=== PATIENT | male | born 1945 | race Caucasian/White ===

== ENCOUNTER 2017-01-07 08:59 | Inpatient (IN) | payer MEDICARE, OTHER ==
[2017-01-07] MEDS ORDERED: IPRATROPIUM 0.5 MG/2.5 ML NEBU INHALATION STA (09:03)
[2017-01-07] MEDS ORDERED: DEXAMETHASONE SOD PHOSPHATE 10 MG/ML 1 ML VIAL IV STA (09:03)
[2017-01-07] MEDS ORDERED: ALBUTEROL NEBULIZED 2.5 MG/3 ML INHALATION STA (09:03)
[2017-01-07] MEDS ORDERED: ASPIRIN 325 MG TAB PO STA (09:35)
[2017-01-07 09:36] LABS: VBG PH 7.21 (7.31-7.41)
[2017-01-07 09:41] LABS: INR 1.3 (<1.2); Partial Thromboplastin Time 26.3 sec (22.0-30.0); Prothrombin Time 12.7 sec (9.0-12.0)
[2017-01-07 09:45] LABS: Calcium 9.1 mg/dL (8.4-10.2); Magnesium 1.7 mg/dL (1.6-2.3); Potassium 4.8 mmol/L (3.5-5.1); Total Bilirubin 0.9 mg/dL (0.2-1.3); Total Protein 7.4 g/dL (6.3-8.2)
[2017-01-07 09:58] LABS: CHCM 31.9; HCT 33.5 % (39.0-53.0); HDW 3.43; HGB 10.7 gm/dL (13.0-17.5); Hypochromasia Slight; MCH 29.1 pg (25.0-35.0); MCV 91.1 fL (80.0-100.0); Poikilocytosis Slight; RBC 3.67 m/uL (4.30-5.90); RDW 15.5 % (11.5-15.5); WBC (Perox) 29.26
[2017-01-07 10:04] LABS: WBC 28.8 k/uL (3.8-10.6)
[2017-01-07] MEDS ORDERED: AZITHROMYCIN 500 MG in SODIUM CHLORIDE 0.9% 250 ML IVPB STA (10:21)
[2017-01-07 10:33] LABS: Add Differential Manual Differential
--- NOTE | 2017-01-07 10:33 | ED ---
General Adult HPI - General Chief complaint: Shortness of Breath Stated complaint: Difficulty Breathing Time Seen by Provider: 01/07/17 09:02 Source: patient, family, EMS, RN notes reviewed Mode of arrival: EMS Limitations: altered mental status - History of Present Illness Initial comments: 72-year-old male with history of COPD presents with to reassure worsening dyspnea. Patient does have additional past medical history of early dementia. History is not complete secondary to patient's respiratory status. He does report some chest pain yesterday. Denies chest pain at this time. Patient reports cough and worsening dyspnea over 2 days. - Related Data Allergies Allergy/AdvReac Type Severity Reaction Status Date / Time Unable to Assess Allergy Verified 01/07/17 09:01 Review of Systems ROS Statement: Those systems with pertinent positive or pertinent negative responses have been documented in the HPI. ROS Other: All systems not noted in ROS Statement are negative. Limitations: ROS unobtainable due to patients medical condition Past Medical History Past Medical History: No Reported History Additional Past Medical History / Comment(s): unknown History of Any Multi-Drug Resistant Organisms: Unobtainable Past Surgical History: No Surgical Hx Reported Additional Past Surgical History / Comment(s): unknown Past Psychological History: Unable to Obtain Smoking Status: Unknown if ever smoked General Exam Limitations: altered mental status General appearance: lethargic, in distress Head exam: Present: atraumatic, normocephalic Eye exam: Present: normal appearance, PERRL ENT exam: Present: mucous membranes dry Neck exam: Present: normal inspection Respiratory exam: Present: respiratory distress, accessory muscle use, decreased breath sounds, prolonged expiratory Cardiovascular Exam: Present: regular rate, normal rhythm GI/Abdominal exam: Present: soft. Absent: distended, tenderness Extremities exam: Present: normal inspection, normal capillary refill. Absent: pedal edema Neurological exam: Absent: motor sensory deficit Psychiatric exam: Present: normal affect, normal mood Skin exam: Present: cyanosis, diaphoretic Course Vital Signs 01/07/17 01/07/17 01/07/17 09:01 09:11 09:15 Temperature 100.3 F H Pulse Rate 78 74 Respiratory 30 H 28 H Rate Blood Pressure 157/61 O2 Sat by Pulse 91 L Oximetry 01/07/17 01/07/17 01/07/17 09:25 09:31 09:56 Temperature Pulse Rate 86 72 76 Respiratory 26 H Rate Blood Pressure 128/54 O2 Sat by Pulse 98 Oximetry 01/07/17 11:00 Temperature Pulse Rate 68 Respiratory 20 Rate Blood Pressure 122/48 O2 Sat by Pulse 99 Oximetry EKG Findings - EKG Comments: EKG Findings:: EKG obtained at 906, shows normal sinus rhythm, left bundle branch block, ventricular rate 77, P1 70, QRS duration 152, QTC 502, no [place] criteria for ST segment elevation. Repeat EKG at 10:30 shows normal sinus rhythm, no left bundle branch block, ventricular rate of 74, RI 154, QRS duration 100, no signs of ischemia or infarction Medical Decision Making - Medical Decision Making 72-year-old male presenting with severe respiratory distress. Patient has history of COPD. On initial examination patient is lethargic, tachypneic with a respiratory rate of 30, hypoxic on a nonrebreather. His minimal air entry bilaterally, there is faint expiratory wheeze heard. He has retractions and accessory muscle use. He is given one hour treatment of albuterol. During this treatment he is not significantly improved, is placed on BiPAP. EKG is obtained, does show a left bundle branch block, there is no history of left bundle branch block in the past, no old EKG for comparison. This is discussed with cardiology, Dr Sandoval, who is able to evaluate the patient in the emergency department. Repeat EKG at 10:30 shows normal sinus rhythm, no ST segment elevation, no left bundle branch block. Patient will be heparinized, with concern for ACS, no urgent need for solar lab technician at this time, myself and cardiology are agreeable. Laboratory studies reveal elevated white blood cell count of 28,000, hemoglobin is stable 10.7, pCO2 is 83, CO2 on BMP is 30 consistent with acute rise in CO2. Creatinine 1.5 with no known baseline. Troponin is 0.0-3, there is elevation of the CK-MB at 7 although index is normal. Chest x-ray shows hyperinflation consistent with COPD. Patient will be maintained on BiPAP for CO2 retention and respiratory failure. Diagnosis: COPD exacerbation with respiratory failure requiring BiPAP, left bundle branch block, concern for ACS. - Lab Data Result diagrams: 01/07/17 09:18 01/07/17 09:18 Lab Results 01/07/17 01/07/17 01/07/17 Range/Units 09:18 09:18 09:18 WBC 28.8 H* (3.8-10.6) k/uL RBC 3.67 L (4.30-5.90) m/uL Hgb 10.7 L (13.0-17.5) gm/dL Hct 33.5 L (39.0-53.0) % MCV 91.1 (80.0-100.0) fL MCH 29.1 (25.0-35.0) pg MCHC 32.0 (31.0-37.0) g/dL RDW 15.5 (11.5-15.5) % Plt Count 202 (150-450) k/uL Neutrophils % (Manual) 87 % Band Neutrophils % 1 % Lymphocytes % (Manual) 4 % Monocytes % (Manual) 6 % Eosinophils % (Manual) 1 % Metamyelocytes % 1 % Neutrophils # (Manual) 25.30 H (1.3-7.7) k/uL Lymphocytes # (Manual) 1.15 (1.0-4.8) k/uL Monocytes # (Manual) 1.73 H (0-1.0) k/uL Eosinophils # (Manual) 0.29 (0-0.7) k/uL Metamyelocytes # (Man) 0.29 H (0) k/uL Nucleated RBCs 0 (0-0) /100 WBC Polychromasia Present Hypochromasia Slight Poikilocytosis Slight PT (9.0-12.0) sec INR (<1.2) APTT (22.0-30.0) sec VBG pH (7.31-7.41) VBG pCO2 (37-51) mmHg VBG HCO3 (24-28) mmol/L Sodium 140 (137-145) mmol/L Potassium 4.8 (3.5-5.1) mmol/L Chloride 99 (98-107) mmol/L Carbon Dioxide 30 (22-30) mmol/L Anion Gap 11 mmol/L BUN 46 H (9-20) mg/dL Creatinine 1.51 H (0.66-1.25) mg/dL Est GFR (MDRD) Af Amer 55 (>60 ml/min/1.73 sqM) Est GFR (MDRD) Non-Af 46 (>60 ml/min/1.73 sqM) Glucose 152 H (74-99) mg/dL Plasma Lactic Acid Edil (0.7-2.0) mmol/L Calcium 9.1 (8.4-10.2) mg/dL Magnesium 1.7 (1.6-2.3) mg/dL Total Bilirubin 0.9 (0.2-1.3) mg/dL AST 43 (17-59) U/L ALT 25 (21-72) U/L Alkaline Phosphatase 88 (38-126) U/L Total Creatine Kinase 957 H (55-170) U/L CK-MB (CK-2) 7.0 H* (0.0-2.4) ng/mL CK-MB (CK-2) Rel Index 0.7 Troponin I 0.023 (0.000-0.034) ng/mL NT-Pro-B Natriuret Pep pg/mL Total Protein 7.4 (6.3-8.2) g/dL Albumin 3.6 (3.5-5.0) g/dL 01/07/17 01/07/17 01/07/17 Range/Units 09:18 09:18 09:18 WBC (3.8-10.6) k/uL RBC (4.30-5.90) m/uL Hgb (13.0-17.5) gm/dL Hct (39.0-53.0) % MCV (80.0-100.0) fL MCH (25.0-35.0) pg MCHC (31.0-37.0) g/dL RDW (11.5-15.5) % Plt Count (150-450) k/uL Neutrophils % (Manual) % Band Neutrophils % % Lymphocytes % (Manual) % Monocytes % (Manual) % Eosinophils % (Manual) % Metamyelocytes % % Neutrophils # (Manual) (1.3-7.7) k/uL Lymphocytes # (Manual) (1.0-4.8) k/uL Monocytes # (Manual) (0-1.0) k/uL Eosinophils # (Manual) (0-0.7) k/uL Metamyelocytes # (Man) (0) k/uL Nucleated RBCs (0-0) /100 WBC Polychromasia Hypochromasia Poikilocytosis PT 12.7 H (9.0-12.0) sec INR 1.3 H (<1.2) APTT 26.3 (22.0-30.0) sec VBG pH (7.31-7.41) VBG pCO2 (37-51) mmHg VBG HCO3 (24-28) mmol/L Sodium (137-145) mmol/L Potassium (3.5-5.1) mmol/L Chloride (98-107) mmol/L Carbon Dioxide (22-30) mmol/L Anion Gap mmol/L BUN (9-20) mg/dL Creatinine (0.66-1.25) mg/dL Est GFR (MDRD) Af Amer (>60 ml/min/1.73 sqM) Est GFR (MDRD) Non-Af (>60 ml/min/1.73 sqM) Glucose (74-99) mg/dL Plasma Lactic Acid Edil 0.9 (0.7-2.0) mmol/L Calcium (8.4-10.2) mg/dL Magnesium (1.6-2.3) mg/dL Total Bilirubin (0.2-1.3) mg/dL AST (17-59) U/L ALT (21-72) U/L Alkaline Phosphatase (38-126) U/L Total Creatine Kinase (55-170) U/L CK-MB (CK-2) (0.0-2.4) ng/mL CK-MB (CK-2) Rel Index Troponin I (0.000-0.034) ng/mL NT-Pro-B Natriuret Pep 4090 pg/mL Total Protein (6.3-8.2) g/dL Albumin (3.5-5.0) g/dL 01/07/17 Range/Units 09:18 WBC (3.8-10.6) k/uL RBC (4.30-5.90) m/uL Hgb (13.0-17.5) gm/dL Hct (39.0-53.0) % MCV (80.0-100.0) fL MCH (25.0-35.0) pg MCHC (31.0-37.0) g/dL RDW (11.5-15.5) % Plt Count (150-450) k/uL Neutrophils % (Manual) % Band Neutrophils % % Lymphocytes % (Manual) % Monocytes % (Manual) % Eosinophils % (Manual) % Metamyelocytes % % Neutrophils # (Manual) (1.3-7.7) k/uL Lymphocytes # (Manual) (1.0-4.8) k/uL Monocytes # (Manual) (0-1.0) k/uL Eosinophils # (Manual) (0-0.7) k/uL Metamyelocytes # (Man) (0) k/uL Nucleated RBCs (0-0) /100 WBC Polychromasia Hypochromasia Poikilocytosis PT (9.0-12.0) sec INR (<1.2) APTT (22.0-30.0) sec VBG pH 7.21 L (7.31-7.41) VBG pCO2 83 H* (37-51) mmHg VBG HCO3 32 H (24-28) mmol/L Sodium (137-145) mmol/L Potassium (3.5-5.1) mmol/L Chloride (98-107) mmol/L Carbon Dioxide (22-30) mmol/L Anion Gap mmol/L BUN (9-20) mg/dL Creatinine (0.66-1.25) mg/dL Est GFR (MDRD) Af Amer (>60 ml/min/1.73 sqM) Est GFR (MDRD) Non-Af (>60 ml/min/1.73 sqM) Glucose (74-99) mg/dL Plasma Lactic Acid Edil (0.7-2.0) mmol/L Calcium (8.4-10.2) mg/dL Magnesium (1.6-2.3) mg/dL Total Bilirubin (0.2-1.3) mg/dL AST (17-59) U/L ALT (21-72) U/L Alkaline Phosphatase (38-126) U/L Total Creatine Kinase (55-170) U/L CK-MB (CK-2) (0.0-2.4) ng/mL CK-MB (CK-2) Rel Index Troponin I (0.000-0.034) ng/mL NT-Pro-B Natriuret Pep pg/mL Total Protein (6.3-8.2) g/dL Albumin (3.5-5.0) g/dL Critical Care Time Critical Care Time: Yes Total Critical Care Time: 40 Disposition Clinical Impression: Respiratory failure with hypercapnia, Acute exacerbation of chronic obstructive airways disease, Acute coronary syndrome Disposition: ADMITTED IP TO THIS HOSP Condition: Serious Referrals: Michael Rider MD [Primary Care Provider] - 1-2 days Decision to Admit Reason: Admit from EC Decision Date: 01/07/17 Decision Time: 10:59
[2017-01-07 10:34] LABS: Band Neutrophils % 1 %; Metamyelocytes % 1 %; Nucleated Red Blood Cells 0 /100 WBC (0-0); Total Cells Counted 100; Troponin I 0.023 ng/mL (0.000-0.034)
[2017-01-07 10:35] LABS: Polychromasia Present
[2017-01-07] MEDS: SODIUM CHLORIDE 0.9% 1,000 ML IV SCH (10:56)
[2017-01-07] MEDS ORDERED: HEPARIN SODIUM,PORCINE 5,000 UNIT/ML 1 ML VIAL IV ONE (10:59)
--- NOTE | 2017-01-07 11:35 | XR ---
EXAMINATION TYPE: XR chest 1V portable DATE OF EXAM: 01/07/2017 HISTORY: Pain. REFERENCE: NONE. FINDINGS: Lung volumes are prominent. The heart is not enlarged. The lungs appear clear. Pleural spac es are clear. IMPRESSION: COPD.
[2017-01-07] MEDS: IPRATROPIUM-ALBUTEROL 3 ML NEB INHALATION PRN ×3 (11:55→19:36)
[2017-01-07] MEDS: HEPARIN SODIUM,PORCINE/D5W PMX 25,000 UNIT in DEXTROSE/WATER 1 500ML.BAG IV SCH (11:58)
[2017-01-07] MEDS: HYDROcodone/APAP 10-325MG 1 EACH TAB PO PRN ×3 (15:12→23:44)
--- NOTE | 2017-01-07 15:21 | P.CRDCN ---
History of Present Illness Consult date: 01/07/17 History of present illness: This is a 72-year-old gentleman with a past medical history significant for COPD , hypertension, and dyslipidemia, presented to the emergency room complaining of shortness of breath. The patient is a poor historian and he was a slightly confused when he was seen in the ER. When he presented to the ER, his P CO2 was more than 80. He was placed on BiPAP. We get involved in the care of the patient because the EKG when he presented showed left bundle branch block which seems to be new to the patient. The patient describes mild chest discomfort yesterday but nothing today. His shortness of breath was getting better. He is not aware of any prior history of coronary artery disease or congestive heart failure or cardiac arrhythmia and he never seen any solar energy system installer as an outpatient. In the ER he was in narrow complex tachycardia. The first set of cardiac enzymes came in to be unremarkable. The first EKG showed LBBB and the subsequent EKG showed narrow complex without any ischemic changes. The chest x- ray showed findings consistent with COPD. The WBC came in to be severe lead dilated. Overall I feel the patient has COPD exacerbation. I will follow-up with the serial cardiac enzymes. Obtain an echocardiogram was Doppler. And continue following up with him Past Medical History Past Medical History: COPD, Dementia, Hyperlipidemia, Hypertension, Memory Impairment Additional Past Medical History / Comment(s): back pain - info from patient's med list History of Any Multi-Drug Resistant Organisms: Unobtainable Past Surgical History: No Surgical Hx Reported Additional Past Surgical History / Comment(s): unknown Past Psychological History: Unable to Obtain Smoking Status: Unknown if ever smoked Medications and Allergies Home Medications Medication Instructions Recorded Confirmed Type Albuterol Nebulized [Ventolin 2.5 mg INHALATION RT-Q4H PRN 01/07/17 01/07/17 History Nebulized] Atenolol [Tenormin] 50 mg PO BID 01/07/17 01/07/17 History Atorvastatin [Lipitor] 20 mg PO DAILY 01/07/17 01/07/17 History Diltiazem HCl [Diltiazem 24Hr ER] 180 mg PO Q24H 01/07/17 01/07/17 History Donepezil [Aricept] 10 mg PO HS 01/07/17 01/07/17 History Formoterol Fumarate [Perforomist] 20 mcg INHALATION RT-BID 01/07/17 01/07/17 History HYDROcodone/APAP 10-325MG [[place] 1 - 2 tab PO Q6H PRN 01/07/17 01/07/17 History 10-325] Losartan/Hydrochlorothiazide 1 tab PO DAILY 01/07/17 01/07/17 History [Losartan-Hctz 100-25 mg Tab] Memantine [Namenda] 10 mg PO BID 01/07/17 01/07/17 History Allergies Allergy/AdvReac Type Severity Reaction Status Date / Time No Known Allergies Allergy Unverified 01/07/17 11:49 Physical Exam Vitals: Vital Signs Temp Pulse Pulse Resp BP BP Pulse Ox 01/07/17 14:17 97.3 F L 60 22 132/59 100 01/07/17 12:15 65 01/07/17 11:56 60 01/07/17 11:46 63 20 135/52 100 01/07/17 11:00 68 20 122/48 99 01/07/17 09:56 76 01/07/17 09:31 72 26 H 128/54 98 01/07/17 09:25 86 01/07/17 09:15 28 H 01/07/17 09:11 74 01/07/17 09:01 100.3 F H 78 30 H 157/61 91 L Intake and Output 01/07/17 01/07/17 01/07/17 06:59 14:59 22:59 Other: Voiding Method Urinal Diaper Weight 90.718 kg Patient Weight 01/08/17 06:59 Weight 90.718 kg - Constitutional General appearance: no acute distress - Respiratory Respiratory: bilateral: diminished - Cardiovascular Rhythm: regular Heart sounds: normal: S1, S2 Results 01/07/17 09:18 01/07/17 09:18 Cardiac Enzymes 01/07/17 01/07/17 Range/Units 09:18 09:18 AST 43 (17-59) U/L CK-MB (CK-2) 7.0 H* (0.0-2.4) ng/mL Troponin I 0.023 (0.000-0.034) ng/mL Coagulation 01/07/17 Range/Units 09:18 PT 12.7 H (9.0-12.0) sec APTT 26.3 (22.0-30.0) sec CBC 01/07/17 Range/Units 09:18 WBC 28.8 H* (3.8-10.6) k/uL RBC 3.67 L (4.30-5.90) m/uL Hgb 10.7 L (13.0-17.5) gm/dL Hct 33.5 L (39.0-53.0) % Plt Count 202 (150-450) k/uL Comprehensive Metabolic Panel 01/07/17 Range/Units 09:18 Sodium 140 (137-145) mmol/L Potassium 4.8 (3.5-5.1) mmol/L Chloride 99 (98-107) mmol/L Carbon Dioxide 30 (22-30) mmol/L BUN 46 H (9-20) mg/dL Creatinine 1.51 H (0.66-1.25) mg/dL Glucose 152 H (74-99) mg/dL Calcium 9.1 (8.4-10.2) mg/dL AST 43 (17-59) U/L ALT 25 (21-72) U/L Alkaline Phosphatase 88 (38-126) U/L Total Protein 7.4 (6.3-8.2) g/dL Albumin 3.6 (3.5-5.0) g/dL Current Medications Generic Name Dose Route Start Last Admin Trade Name Freq PRN Reason Stop Dose Admin Hydrocodone Bitart/Acetaminophen 1 - 2 each 01/07/17 14:27 [place] 10 PO Q6H PRN Pain Albuterol/Ipratropium 3 ml 01/07/17 11:00 01/07/17 11:55 Duoneb 0.5 Mg-3 Mg/3 Ml Soln INHALATION 3 ml RT-Q4H PRN Administration Shortness Of Breath Or Wheezing Atenolol 50 mg 01/07/17 21:00 Tenormin PO BID YOSHI Atorvastatin Calcium 20 mg 01/08/17 09:00 Lipitor PO DAILY YOSHI Diltiazem HCl 180 mg 01/08/17 09:00 Cardizem Cd PO Q24HR YOSHI Donepezil HCl 10 mg 01/07/17 21:00 Aricept PO HS YOSHI HCTZ/Losartan Potassium 2 each 01/08/17 09:00 Hyzaar 50-12.5 PO DAILY YOSHI Heparin Sodium (Porcine) 0 unit 01/07/17 10:59 Heparin IV PER PROTOCOL PRN Low PTT Protocol Sodium Chloride 1,000 mls @ 75 mls/hr 01/07/17 10:45 01/07/17 10:56 Saline 0.9% IV 75 mls/hr .[id number] YOSHI Administration Heparin Sodium/Dextrose 25,000 500 mls @ 20 mls/hr 01/07/17 11:00 01/07/17 11 :58 unit/ IV Solution IV 11.024 units/kg/hr .Q24H YOSHI 20 mls/hr Protocol Administration 11.024 UNITS/KG/HR Levofloxacin 500 mg 01/08/17 09:00 Levaquin PO Q24H YOSHI Memantine 10 mg 01/07/17 21:00 Namenda PO BID YOSHI Prednisone 40 mg 01/08/17 09:00 PO DAILY YOSHI Intake and Output 01/07/17 01/07/17 01/07/17 06:59 14:59 22:59 Other: Voiding Method Urinal Diaper Weight 90.718 kg Patient Weight 01/08/17 06:59 Weight 90.718 kg 01/07/17 09:18 01/07/17 09:18 Assessment and Plan Plan: This is a pleasant 72-year-old gentleman who presented with shortness of breath and he seems to be in COPD exacerbation. The initial EKG showed LBBB and the subsequent EKG showed narrow complex without any ST changes. The LBBB could be secondary to rate related left bundle branch block. I will obtain an echocardiogram was Doppler. Follow-up with the serial cardiac enzymes. And follow-up with the patient.
[2017-01-07 17:34] LABS: Troponin I 0.016 ng/mL (0.000-0.034)
[2017-01-07 17:40] LABS: Creatine Kinase MB 10.8 ng/mL (0.0-2.4)
[2017-01-07] MEDS: HEPARIN SODIUM,PORCINE 5,000 UNIT/ML 1 ML VIAL IV PRN ×2 (17:44→23:45)
[2017-01-07] MEDS: ATENOLOL 50 MG TAB PO SCH (20:27)
[2017-01-07] MEDS: MEMANTINE 10 MG TAB PO SCH (20:27)
[2017-01-07] MEDS: DONEPEZIL 10 MG TAB PO SCH (20:27)
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
[2017-01-07 23:20] LABS: Creatine Kinase 980 U/L (55-170)
[2017-01-07 23:34] LABS: Creatine Kinase MB 10.1 ng/mL (0.0-2.4); Troponin I <0.012 ng/mL (0.000-0.034)
[2017-01-08 01:11] LABS: Appearance,Urine Cloudy (Clear); Bacteria,Urine Rare /hpf; Bilirubin,Urine Negative (Negative); Glucose,Urine (UA) Trace (Negative); Ketones,Urine Negative (Negative); Leukocyte Esterase,Urine Large (Negative); Mucus,Urine Rare /hpf; Nitrite,Urine Negative (Negative); Particle Count 9837; Protein,Urine 1+ (Negative); RBC,Urine 3 /hpf (0-5); Specific Gravity,Urine 1.019 (1.001-1.035); Squamous Epithelial Cell,Urine 2 /hpf (0-4); UA Billing (MACRO vs. MICRO) MICRO; Urobilinogen,Urine <2.0 mg/dL (<2.0); WBC,Urine 77 /hpf (0-5)
[2017-01-08 05:27] LABS: Creatine Kinase 787 U/L (55-170)
[2017-01-08 05:39] LABS: Troponin I <0.012 ng/mL (0.000-0.034)
[2017-01-08 05:49] LABS: Creatine Kinase MB 8.3 ng/mL (0.0-2.4)
[2017-01-08 06:40] LABS: Basophils % (A) 0 %; CH 29.8; CHCM 32.1; Eosinophils % (A) 0 %; HCT 32.2 % (39.0-53.0); HDW 3.26; HGB 9.9 gm/dL (13.0-17.5); Hypochromasia Slight; Luc # (Auto) 0.16; Luc % (Auto) 1; Lymphocytes # (A) 0.7 k/uL (1.0-4.8); Lymphocytes % (A) 3 %; MCH 28.7 pg (25.0-35.0); MCHC 30.8 g/dL (31.0-37.0); MCV 93.2 fL (80.0-100.0); Mean Platelet Volume 8.2; Monocytes # (A) 0.6 k/uL (0-1.0); Monocytes % (A) 2 %; Neutrophils # (A) 23.1 k/uL (1.3-7.7); Neutrophils % (A) 94 %; RBC 3.45 m/uL (4.30-5.90); RDW 15.8 % (11.5-15.5); WBC 24.6 k/uL (3.8-10.6); WBC (Perox) 22.79
[2017-01-08] MEDS: HEPARIN SODIUM,PORCINE/D5W PMX 25,000 UNIT in DEXTROSE/WATER 1 500ML.BAG IV SCH (06:54)
[2017-01-08] MEDS: SODIUM CHLORIDE 0.9% 1,000 ML IV SCH ×2 (06:56→19:58)
[2017-01-08 07:02] LABS: Calcium 8.9 mg/dL (8.4-10.2); Potassium 4.8 mmol/L (3.5-5.1)
[2017-01-08] MEDS: IPRATROPIUM-ALBUTEROL 3 ML NEB INHALATION PRN ×2 (07:57→11:28)
[2017-01-08] MEDS: MEMANTINE 10 MG TAB PO SCH ×2 (08:12→19:58)
[2017-01-08] MEDS: DILTIAZEM CD 180 MG CAP.ER.24H PO SCH (08:12)
[2017-01-08] MEDS: HYDROcodone/APAP 10-325MG 1 EACH TAB PO PRN ×2 (08:13→19:58)
[2017-01-08] MEDS: LEVOFLOXACIN 500 MG TAB PO SCH (08:13)
--- NOTE | 2017-01-08 08:49 | P.PN ---
Subjective Principal diagnosis: Shortness of breath/chest pain This is a 72-year-old gentleman with a past medical history significant for COPD , hypertension, and dyslipidemia, presented to the emergency room complaining of shortness of breath. The patient is a poor historian and he was a slightly confused when he was seen in the ER. When he presented to the ER, his P CO2 was more than 80. He was placed on BiPAP with significant improvement in the shortness of breath as well as in the pCO2. We get involved in the care of the patient because the EKG when he presented showed left bundle branch block which seems to be new to the patient. The patient describes mild chest discomfort yesterday but nothing today. His shortness of breath was getting better. He is not aware of any prior history of coronary artery disease or congestive heart failure or cardiac arrhythmia and he never seen any basketball assembler as an outpatient. On follow-up with the patient today on 01/08/2017, he is seems doing better. The shortness of breath has improved significantly. He still experience intermittent episodes of mild chest discomfort but is difficult to get details from him because of underlying dementia. The cardiac enzymes were checked and came in to be within normal limits. Objective - Vital Signs Vital signs: Vital Signs Temp 96.8 F L 01/08/17 07:57 Pulse 62 01/08/17 08:08 Resp 16 01/08/17 07:57 BP 143/57 01/08/17 07:57 Pulse Ox 97 01/08/17 07:59 Intake & Output 01/07/17 01/08/17 01/08/17 18:59 06:59 18:59 Intake Total 113.333 975.779 480 Output Total 500 200 Balance 113.333 475.779 280 Weight 90.718 kg 90.9 kg Intake: Intake, IV Titration 113.333 975.779 Amount Heparin Sodium,Porcine/ 113.333 375.779 D5w Pmx 25,000 unit In Dextrose/Water 1 500ml. bag @ 11.024 UNITS/KG/HR 20 mls/hr IV .Q24H [facility] Rx #:[id number] Sodium Chloride 0.9% 1, 600 000 ml @ 75 mls/hr IV . [id number] [facility] Rx#:[id number] Oral 480 Output: Urine 500 200 Other: Voiding Method Urinal Urinal Diaper Diaper # Voids 1 - Constitutional General appearance: Present: no acute distress - Respiratory Respiratory: bilateral: diminished, wheezing - Cardiovascular Rhythm: regular Heart sounds: normal: S1, S2 - Labs CBC & Chem 7: 01/08/17 06:19 01/08/17 06:19 Labs: Abnormal Lab Results - Last 24 Hours (Table) 01/07/17 01/07/17 01/07/17 Range/Units 09:18 09:18 09:18 WBC 28.8 H* (3.8-10.6) k/uL RBC 3.67 L (4.30-5.90) m/uL Hgb 10.7 L (13.0-17.5) gm/dL Hct 33.5 L (39.0-53.0) % MCHC (31.0-37.0) g/dL RDW (11.5-15.5) % Neutrophils # (1.3-7.7) k/uL Neutrophils # (Manual) 25.30 H (1.3-7.7) k/uL Lymphocytes # (1.0-4.8) k/uL Monocytes # (Manual) 1.73 H (0-1.0) k/uL Metamyelocytes # (Man) 0.29 H (0) k/uL PT (9.0-12.0) sec INR (<1.2) APTT (22.0-30.0) sec VBG pH (7.31-7.41) VBG pCO2 (37-51) mmHg VBG HCO3 (24-28) mmol/L Carbon Dioxide (22-30) mmol/L BUN 46 H (9-20) mg/dL Creatinine 1.51 H (0.66-1.25) mg/dL Glucose 152 H (74-99) mg/dL Total Creatine Kinase 957 H (55-170) U/L CK-MB (CK-2) 7.0 H* (0.0-2.4) ng/mL Urine Protein (Negative) Urine Glucose (UA) (Negative) Urine Blood (Negative) Ur Leukocyte Esterase (Negative) Urine WBC (0-5) /hpf Urine WBC Clumps (None) /hpf Urine Bacteria (None) /hpf Hyaline Casts (0-2) /lpf Urine Mucus (None) /hpf Urine Yeast (Budding) (None) /hpf 01/07/17 01/07/17 01/07/17 Range/Units 09:18 09:18 16:43 WBC (3.8-10.6) k/uL RBC (4.30-5.90) m/uL Hgb (13.0-17.5) gm/dL Hct (39.0-53.0) % MCHC (31.0-37.0) g/dL RDW (11.5-15.5) % Neutrophils # (1.3-7.7) k/uL Neutrophils # (Manual) (1.3-7.7) k/uL Lymphocytes # (1.0-4.8) k/uL Monocytes # (Manual) (0-1.0) k/uL Metamyelocytes # (Man) (0) k/uL PT 12.7 H (9.0-12.0) sec INR 1.3 H (<1.2) APTT 34.2 H (22.0-30.0) sec VBG pH 7.21 L (7.31-7.41) VBG pCO2 83 H* (37-51) mmHg VBG HCO3 32 H (24-28) mmol/L Carbon Dioxide (22-30) mmol/L BUN (9-20) mg/dL Creatinine (0.66-1.25) mg/dL Glucose (74-99) mg/dL Total Creatine Kinase (55-170) U/L CK-MB (CK-2) (0.0-2.4) ng/mL Urine Protein (Negative) Urine Glucose (UA) (Negative) Urine Blood (Negative) Ur Leukocyte Esterase (Negative) Urine WBC (0-5) /hpf Urine WBC Clumps (None) /hpf Urine Bacteria (None) /hpf Hyaline Casts (0-2) /lpf Urine Mucus (None) /hpf Urine Yeast (Budding) (None) /hpf 01/07/17 01/07/17 01/07/17 Range/Units 16:43 22:43 22:43 WBC (3.8-10.6) k/uL RBC (4.30-5.90) m/uL Hgb (13.0-17.5) gm/dL Hct (39.0-53.0) % MCHC (31.0-37.0) g/dL RDW (11.5-15.5) % Neutrophils # (1.3-7.7) k/uL Neutrophils # (Manual) (1.3-7.7) k/uL Lymphocytes # (1.0-4.8) k/uL Monocytes # (Manual) (0-1.0) k/uL Metamyelocytes # (Man) (0) k/uL PT (9.0-12.0) sec INR (<1.2) APTT 37.0 H (22.0-30.0) sec VBG pH (7.31-7.41) VBG pCO2 (37-51) mmHg VBG HCO3 (24-28) mmol/L Carbon Dioxide (22-30) mmol/L BUN (9-20) mg/dL Creatinine (0.66-1.25) mg/dL Glucose (74-99) mg/dL Total Creatine Kinase 1031 H 980 H (55-170) U/L CK-MB (CK-2) 10.8 H* 10.1 H* (0.0-2.4) ng/mL Urine Protein (Negative) Urine Glucose (UA) (Negative) Urine Blood (Negative) Ur Leukocyte Esterase (Negative) Urine WBC (0-5) /hpf Urine WBC Clumps (None) /hpf Urine Bacteria (None) /hpf Hyaline Casts (0-2) /lpf Urine Mucus (None) /hpf Urine Yeast (Budding) (None) /hpf 01/08/17 01/08/17 01/08/17 Range/Units 00:45 03:48 06:19 WBC 24.6 H (3.8-10.6) k/uL RBC 3.45 L (4.30-5.90) m/uL Hgb 9.9 L (13.0-17.5) gm/dL Hct 32.2 L (39.0-53.0) % MCHC 30.8 L (31.0-37.0) g/dL RDW 15.8 H (11.5-15.5) % Neutrophils # 23.1 H (1.3-7.7) k/uL Neutrophils # (Manual) (1.3-7.7) k/uL Lymphocytes # 0.7 L (1.0-4.8) k/uL Monocytes # (Manual) (0-1.0) k/uL Metamyelocytes # (Man) (0) k/uL PT (9.0-12.0) sec INR (<1.2) APTT (22.0-30.0) sec VBG pH (7.31-7.41) VBG pCO2 (37-51) mmHg VBG HCO3 (24-28) mmol/L Carbon Dioxide (22-30) mmol/L BUN (9-20) mg/dL Creatinine (0.66-1.25) mg/dL Glucose (74-99) mg/dL Total Creatine Kinase 787 H (55-170) U/L CK-MB (CK-2) 8.3 H* (0.0-2.4) ng/mL Urine Protein 1+ H (Negative) Urine Glucose (UA) Trace H (Negative) Urine Blood Small H (Negative) Ur Leukocyte Esterase Large H (Negative) Urine WBC 77 H (0-5) /hpf Urine WBC Clumps Few H (None) /hpf Urine Bacteria Rare H (None) /hpf Hyaline Casts 21 H (0-2) /lpf Urine Mucus Rare H (None) /hpf Urine Yeast (Budding) Rare H (None) /hpf 01/08/17 01/08/17 Range/Units 06:19 06:19 WBC (3.8-10.6) k/uL RBC (4.30-5.90) m/uL Hgb (13.0-17.5) gm/dL Hct (39.0-53.0) % MCHC (31.0-37.0) g/dL RDW (11.5-15.5) % Neutrophils # (1.3-7.7) k/uL Neutrophils # (Manual) (1.3-7.7) k/uL Lymphocytes # (1.0-4.8) k/uL Monocytes # (Manual) (0-1.0) k/uL Metamyelocytes # (Man) (0) k/uL PT (9.0-12.0) sec INR (<1.2) APTT 41.7 H (22.0-30.0) sec VBG pH (7.31-7.41) VBG pCO2 (37-51) mmHg VBG HCO3 (24-28) mmol/L Carbon Dioxide 32 H (22-30) mmol/L BUN 61 H (9-20) mg/dL Creatinine 1.62 H (0.66-1.25) mg/dL Glucose 143 H (74-99) mg/dL Total Creatine Kinase (55-170) U/L CK-MB (CK-2) (0.0-2.4) ng/mL Urine Protein (Negative) Urine Glucose (UA) (Negative) Urine Blood (Negative) Ur Leukocyte Esterase (Negative) Urine WBC (0-5) /hpf Urine WBC Clumps (None) /hpf Urine Bacteria (None) /hpf Hyaline Casts (0-2) /lpf Urine Mucus (None) /hpf Urine Yeast (Budding) (None) /hpf Assessment and Plan Plan: This is a pleasant 72-year-old gentleman who presented with shortness of breath and he seems to be in COPD exacerbation. The initial EKG showed LBBB and the subsequent EKG showed narrow complex without any ST changes. The cardiac enzymes were checked and came in to be within normal limits. Clinically the patient describes very mild episodes of chest discomfort. I do feel the patient need to be ruled out for severe underlying CAD. He insists that he wants to go home. If that the scenario he is to have a stress test and echocardiogram as an outpatient.
[2017-01-08] MEDS ORDERED: predniSONE 20 MG TAB PO SCH (09:00)
[2017-01-08] MEDS: ATENOLOL 50 MG TAB PO SCH ×2 (09:34→19:58)
[2017-01-08] MEDS: ATORVASTATIN 20 MG TAB PO SCH (09:36)
[2017-01-08] MEDS: LOSARTAN-HCTZ 50-12.5 MG 1 EACH TAB PO SCH ×2 (11:59→15:30)
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
[2017-01-08] MEDS ORDERED: methylPREDNISolone SOD SUCCI 125 MG/2 ML VIAL IV SCH (12:30)
[2017-01-08] MEDS: CALCIUM CARB-VIT D 500MG-200UN 1 EACH TAB PO SCH ×2 (12:42→21:46)
[2017-01-08] MEDS ORDERED: CALCIUM CARBONATE 500 MG CHEWABLE PO PRN (13:40)
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
[2017-01-08] MEDS: IPRATROPIUM-ALBUTEROL 3 ML NEB INHALATION SCH ×3 (15:37→23:38)
[2017-01-08] MEDS: methylPREDNISolone SOD SUCCI 40 MG/ML 1 ML VIAL IV SCH ×2 (17:54→23:19)
[2017-01-08] MEDS: HEPARIN SODIUM,PORCINE 5,000 UNIT/ML 1 ML VIAL SQ SCH ×2 (17:55→23:21)
[2017-01-08] MEDS: FORMOTEROL FUMARATE 20 MCG/2 ML NEBU INHALATION SCH (19:52)
[2017-01-08] MEDS: BUDESONIDE 1 MG/2 ML NEBU INHALATION SCH ×2 (19:52)
[2017-01-08] MEDS: DONEPEZIL 10 MG TAB PO SCH (19:58)
--- NOTE | 2017-01-08 22:14 | PN ---
PROGRESS NOTE DATE OF SERVICE: 01/08/2017 ATTENDING NOTE: This patient seen and examined by me. I discussed with my nurse practitioner, Ms. Snyder. Patient admitted with COPD exacerbation. Still has a cough, wheezing. Some decrease in sputum production. EXAMINATION: Afebrile. Lungs decreased breath sounds, expiratory wheezing, left crackles. Psych: AO x3. White count 24.6, creatinine 1.62. ASSESSMENT: 1. Acute chronic obstructive pulmonary disease exacerbation from acute bronchitis, slow to respond. 2. Chronic kidney disease, stage 3, probably from hypertensive nephrosclerosis. 3. Normocytic anemia likely secondary to chronic kidney disease. PLAN: Continue with IV Solu-Medrol, switch to 40 mg q.8. Continue other medications. Cardiology is considering ischemic work up when patient more stable. Follow. MMODL / IJN: [id number] /
[2017-01-09] MEDS: IPRATROPIUM-ALBUTEROL 3 ML NEB INHALATION SCH ×6 (03:37→23:48)
[2017-01-09 06:28] LABS: Basophils % (A) 0 %; CH 28.9; CHCM 30.5; Eosinophils % (A) 0 %; HCT 32.4 % (39.0-53.0); HDW 3.24; HGB 9.9 gm/dL (13.0-17.5); Hypochromasia Marked; Luc # (Auto) 0.09; Luc % (Auto) 1; Lymphocytes # (A) 0.6 k/uL (1.0-4.8); Lymphocytes % (A) 3 %; MCHC 30.6 g/dL (31.0-37.0); MCV 94.9 fL (80.0-100.0); Monocytes # (A) 0.4 k/uL (0-1.0); Monocytes % (A) 2 %; Neutrophils # (A) 16.1 k/uL (1.3-7.7); Neutrophils % (A) 94 %; RBC 3.42 m/uL (4.30-5.90); RDW 15.1 % (11.5-15.5); WBC 17.1 k/uL (3.8-10.6); WBC (Perox) 17.96
[2017-01-09 06:50] LABS: Anion Gap 9 mmol/L; Blood Urea Nitrogen 59 mg/dL (9-20); Carbon Dioxide 29 mmol/L (22-30); Chloride 102 mmol/L (98-107); Glucose 128 mg/dL (74-99); Non-African American GFR(MDRD) 54 (>60 ml/min/1.73 sqM); Potassium 4.7 mmol/L (3.5-5.1); Sodium 140 mmol/L (137-145)
[2017-01-09] MEDS: BUDESONIDE 1 MG/2 ML NEBU INHALATION SCH ×2 (07:00→20:42)
[2017-01-09] MEDS: FORMOTEROL FUMARATE 20 MCG/2 ML NEBU INHALATION SCH ×2 (07:00→20:42)
[2017-01-09] MEDS: ATORVASTATIN 20 MG TAB PO SCH (09:23)
[2017-01-09] MEDS: HEPARIN SODIUM,PORCINE 5,000 UNIT/ML 1 ML VIAL SQ SCH ×3 (09:23→23:10)
[2017-01-09] MEDS: methylPREDNISolone SOD SUCCI 40 MG/ML 1 ML VIAL IV SCH ×3 (09:23→23:11)
[2017-01-09] MEDS: LEVOFLOXACIN 500 MG TAB PO SCH (09:23)
[2017-01-09] MEDS: DILTIAZEM CD 180 MG CAP.ER.24H PO SCH (09:24)
[2017-01-09] MEDS: LOSARTAN-HCTZ 50-12.5 MG 1 EACH TAB PO SCH (09:24)
[2017-01-09] MEDS: MEMANTINE 10 MG TAB PO SCH ×2 (09:24→20:35)
[2017-01-09] MEDS: ATENOLOL 50 MG TAB PO SCH ×2 (09:24→20:35)
[2017-01-09] MEDS: SODIUM CHLORIDE 0.9% 1,000 ML IV SCH (09:25)
[2017-01-09] MEDS ORDERED: REGADENOSON 0.4 MG/5 ML SYRINGE IV ONE (12:31)
[2017-01-09] MEDS ORDERED: AMINOPHYLLINE 500 MG/20 ML VIAL IV PRN (12:31)
--- NOTE | 2017-01-09 12:47 | P.PN ---
Subjective Principal diagnosis: Acute exacerbation of COPD 72-year-old male patient with advanced COPD and chronic hypoxic respiratory failure who was admitted to the hospital because of worsening shortness of breath, chest tightness, wheezing, and impending respiratory failure. The patient was placed on BiPAP and his pulmonary status is stabilized with a combination of bronchodilators and steroids and antibiotics. Currently he is breathing easier. He is off the BiPAP overnight is still short of breath and he gets dyspneic with limited amount of activity. He has episodic cough without any significant sputum production. Admission showed COPD and prominent lung volumes and the cardiac structures were within normal limits and the pleural spaces were clear. His white cell count was elevated at 28 and currently down to 24. He had a component of an acute kidney injury with a creatinine of 1.6, cardiac enzymes were negative, proBNP level was in the 4000 range and the lactic acid was at 0.9. Urine may be infected and the patient is currently covered with Levaquin. He has some background dementia. No change in mental status. Since then leaving home and I think he is not ready for discharge. He is a cardiac evaluation. His COPD he needs to be further optimized. I contacted the son and told him that his that is not ready for discharge unless he decides to go AGAINST MEDICAL ADVICE. Patient was reevaluated today on 01/09/2017, seems to be doing better, breathing a bit easier, less cough and less wheezing less shortness of breath. Patient is known to have advanced COPD and chronic hypoxic respiratory failure, echocardiogram is being done at the time of my dictation. Patient is on proper bronchodilators, and he was already seen by Dr. Montgomery yesterday. According to the patient is a bit improved compared to how he felt yesterday. Objective - Vital Signs Vital signs: Vital Signs Temp 96.7 F L 01/09/17 08:00 Pulse 68 01/09/17 11:18 Resp 18 01/09/17 08:00 BP 178/77 01/09/17 08:00 Pulse Ox 97 01/09/17 08:00 Intake & Output 01/08/17 01/09/17 01/09/17 18:59 06:59 18:59 Intake Total 680 20 250 Output Total 400 450 250 Balance 280 -430 0 Weight 94.9 kg Intake: IV 20 10 0.9% NS FLUSH 10 10 Sodium Chloride 0.9% 1, 10 000 ml @ 10 mls/hr IV . Q24H [facility] Rx#:[id number] Oral 680 240 Output: Urine 400 450 250 Other: Voiding Method Urinal Urinal Urinal Diaper # Voids 1 - Exam Gen. appearance the patient is not in respiratory distress laying in bed he is about to have an echocardiogram at bedside Head exam was generally normal. There was no scleral icterus or corneal arcus. Mucous membranes were moist. Neck is short and supple and the patient has significant crowding of the posterior oropharynx. There is no goiter or neck masses. Lungs sounds are diminished and there is diminished breath sounds at the bases , no crackles or rhonchi or wheezes. Cardiac exam revealed the PMI to be normally situated and sized. The rhythm was regular and no extrasystoles were noted during several minutes of auscultation. The first and second heart sounds were normal and physiologic splitting of the second heart sound was noted. There were no murmurs, rubs, clicks, or gallops. Abdomen is obese soft and nontender the patient has no direct tenderness or rebound tensile guarding at this point. No ascites extremities revealed easily palpable radial, femoral and pedal pulses. There was no cyanosis, clubbing or edema.Examination of the skin revealed no evidence of significant rashes, suspicious appearing nevi or other concerning lesions. Neurologic exam is nonfocal and the patient has no focal neurological deficit Skeletal examination shows no joint deformities or arthritis. Skin: No evidence of ulcerations, Psychiatric: Intact mental status exam, normal affect, no suicidal or homicidal thoughts. Patient does not seem to be depressed. - Labs CBC & Chem 7: 01/09/17 06:11 01/09/17 06:08 Labs: Abnormal Lab Results - Last 24 Hours (Table) 01/09/17 01/09/17 Range/Units 06:08 06:11 WBC 17.1 H (3.8-10.6) k/uL RBC 3.42 L (4.30-5.90) m/uL Hgb 9.9 L (13.0-17.5) gm/dL Hct 32.4 L (39.0-53.0) % MCHC 30.6 L (31.0-37.0) g/dL Neutrophils # 16.1 H (1.3-7.7) k/uL Lymphocytes # 0.6 L (1.0-4.8) k/uL BUN 59 H (9-20) mg/dL Creatinine 1.30 H (0.66-1.25) mg/dL Glucose 128 H (74-99) mg/dL Assessment and Plan Plan: Assessment 1 acute COPD exacerbation with secondary shortness of breath 2 advanced COPD with chronic hypoxic respiratory failure admitted oxygen at 3 L/ m nasal cannula 3 CHF must suspected clinically under investigation. Echocardiogram is pending 4 chronic renal failure versus acute. Baseline creatinine is not known 5 leukocytosis 6 urine checked infection suspected 7 obesity 8 hyperlipidemia 9 hypertension 10 early dementia 11 left bundle branch block pattern on EKG, likely chronic Recommendation: Continue present treatment plan including bronchodilators, continue Solu-Medrol, off oral prednisone, continue empiric antibiotics, adjust according to the final cultures when they become available. We'll continue to follow, patient remains on heparin subcu for DVT prophylaxis, final report on the echocardiogram is pending. We'll continue to follow, discussed his condition with him and his son at bedside. Time with Patient: Less than 30
--- NOTE | 2017-01-09 12:51 | P.PN ---
Subjective Principal diagnosis: Shortness of breath/chest pain This is a 72-year-old gentleman with a past medical history significant for COPD , hypertension, and dyslipidemia, presented to the emergency room complaining of shortness of breath. The patient is a poor historian and he was a slightly confused when he was seen in the ER. When he presented to the ER, his P CO2 was more than 80. He was placed on BiPAP with significant improvement in the shortness of breath as well as in the pCO2. We get involved in the care of the patient because the EKG when he presented showed left bundle branch block which seems to be new to the patient. The patient describes mild chest discomfort yesterday but nothing today. His shortness of breath was getting better. On follow-up with the patient today he is seems doing better. The shortness of breath has improved significantly. He still experience intermittent episodes of mild chest discomfort but is difficult to get details from him because of underlying dementia. The blood pressure continues to be not well-controlled. I would consider proceeding with a Lexiscan Cardiolite stress test tomorrow and add hydralazine to the current medical regimen. Objective - Vital Signs Vital signs: Vital Signs Temp 96.7 F L 01/09/17 08:00 Pulse 68 01/09/17 11:18 Resp 18 01/09/17 08:00 BP 178/77 01/09/17 08:00 Pulse Ox 97 01/09/17 08:00 Intake & Output 01/08/17 01/09/17 01/09/17 18:59 06:59 18:59 Intake Total 680 20 250 Output Total 400 450 250 Balance 280 -430 0 Weight 94.9 kg Intake: IV 20 10 0.9% NS FLUSH 10 10 Sodium Chloride 0.9% 1, 10 000 ml @ 10 mls/hr IV . Q24H [facility] Rx#:[id number] Oral 680 240 Output: Urine 400 450 250 Other: Voiding Method Urinal Urinal Urinal Diaper # Voids 1 - Constitutional General appearance: Present: no acute distress - Respiratory Respiratory: bilateral: CTA - Cardiovascular Rhythm: regular Heart sounds: normal: S1, S2 - Labs CBC & Chem 7: 01/09/17 06:11 01/09/17 06:08 Labs: Abnormal Lab Results - Last 24 Hours (Table) 09/25/17 09/25/17 Range/Units 06:08 06:11 WBC 17.1 H (3.8-10.6) k/uL RBC 3.42 L (4.30-5.90) m/uL Hgb 9.9 L (13.0-17.5) gm/dL Hct 32.4 L (39.0-53.0) % MCHC 30.6 L (31.0-37.0) g/dL Neutrophils # 16.1 H (1.3-7.7) k/uL Lymphocytes # 0.6 L (1.0-4.8) k/uL BUN 59 H (9-20) mg/dL Creatinine 1.30 H (0.66-1.25) mg/dL Glucose 128 H (74-99) mg/dL Assessment and Plan Plan: This is a pleasant 72-year-old gentleman who presented with shortness of breath and he seems to be in COPD exacerbation. The initial EKG showed LBBB and the subsequent EKG showed narrow complex without any ST changes. The cardiac enzymes were checked and came in to be within normal limits. Clinically the patient describes very mild episodes of chest discomfort. I do feel the patient need to be ruled out for severe underlying CAD. He insists that he wants to go home. We'll schedule the patient to undergo a stress test tomorrow morning. Follow-up with the echocardiogram.
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
[2017-01-09 13:45] VITALS: BMI 27.6
[2017-01-09] MEDS: hydrALAZINE HCL 50 MG TAB PO SCH ×2 (15:45→20:36)
--- NOTE | 2017-01-09 18:14 | ECHOF ---
Referral Reason:shortness of breath, chest pain MEASUREMENTS -------- HEIGHT: 182.9 cm WEIGHT: 94.8 kg BP: 175/75 IVSd: 1.0 cm (0.6 - 1.1) LVIDd: 4.9 cm (3.9 - 5.3) LVPWd: 1.1 cm (0.6 - 1.1) IVSs: 1.3 cm LVIDs: 4.0 cm LVPWs: 1.8 cm LAESV Index (A-L): 33.67 ml/m Ao Diam: 3.2 cm (2.0 - 3.7) LA Diam: 3.4 cm (2.7 - 3.8) MV E Reese: 0.65 m/s MV DecT: 380 ms MV A Reese: 1.13 m/s MV E/A Ratio: 0.58 RAP: 5.00 mmHg RVSP: 16.30 mmHg FINDINGS -------- Sinus rhythm. This was a techncally difficult study with suboptimal views, , Definity utilized for enhancement of images. The left ventricular size is normal. There is mild concentric left ventricular hypertrophy. Overall left ventricular systolic function is low-normal with, an EF between 50 - 55 %. The right ventricle is normal in size. LA is midly dilated 29-33ml/m2. The right atrial size is normal. 1.5MG OF DEFINITY UTLIZED: 2 OR MORE WALL SEGMENTS NOT VISUALIZED. The aortic valve is trileaflet, and appears structurally normal. No aortic stenosis or regurgitation. Mild mitral regurgitation is present. Mild tricuspid regurgitation present. There is no evidence of pulmonary hypertension. The right ventricular systolic pressure, as measured by Doppler, is 16.30mmHg. The pulmonic valve was not well visualized. The aortic root size is normal. There is no pericardial effusion. CONCLUSIONS -------- 1. This was a techncally difficult study with suboptimal views, , Definity utilized for enhancement of images. 2. Mild tricuspid regurgitation present. 3. There is no evidence of pulmonary hypertension. 4. The right ventricular systolic pressure, as measured by Doppler, is 16.30mmHg. 5. The pulmonic valve was not well visualized. 6. The aortic root size is normal. 7. There is no pericardial effusion. 8. The left ventricular size is normal. 9. There is mild concentric left ventricular hypertrophy. 10. Overall left ventricular systolic function is low-normal with, an EF between 50 - 55 %. 11. LA is midly dilated 29-33ml/m2. 12. The right atrial size is normal. 13. 1.5MG OF DEFINITY UTLIZED: 2 OR MORE WALL SEGMENTS NOT VISUALIZED. 14. The aortic valve is trileaflet, and appears structurally normal. No aortic stenosis or regurgitation. 15. Mild mitral regurgitation is present. DESIGN CELL ENGINEER: Priya Franklin RDCS
--- NOTE | 2017-01-09 19:34 | PN ---
PROGRESS NOTE DATE OF SERVICE: 01/09/2017 ATTENDING NOTE: This patient seen and examined by me. I discussed with my nurse practitioner, Ms. Snyder. Patient is still short of breath, wheezing though better than admission. Did bring about glob of green sputum in front of me. EXAMINATION: Blood pressure 160/72. LUNGS: Decreased breath sounds. Some wheezing. CARDIOVASCULAR: First and second sounds are normal. LABORATORY DATA: White count 17.1, hemoglobin 9.9, BUN 58, creatinine 1.30. ASSESSMENT: 1. Acute chronic obstructive pulmonary disease exacerbation with acute bronchitis, ex- smoker. 2. Chest pain. Workup in place per Cardiology. PLAN: Continue current medication and treatment plan. Cardiology is planning to do a nuclear stress test tomorrow. For blood pressure Hydralazine was added. MMODL / IJN: [id number] /
[2017-01-09] MEDS: SENNOSIDES-DOCUSATE SODIUM 1 EACH TAB PO SCH (20:35)
[2017-01-09] MEDS: DONEPEZIL 10 MG TAB PO SCH (20:35)
[2017-01-10] MEDS: IPRATROPIUM-ALBUTEROL 3 ML NEB INHALATION SCH ×3 (03:22→13:16)
[2017-01-10 06:18] LABS: Basophils % (A) 0 %; CH 29.4; CHCM 31.7; Eosinophils % (A) 0 %; HCT 32.3 % (39.0-53.0); HDW 3.15; HGB 10.1 gm/dL (13.0-17.5); Hypochromasia Slight; Luc # (Auto) 0.05; Luc % (Auto) 1; Lymphocytes # (A) 0.5 k/uL (1.0-4.8); Lymphocytes % (A) 7 %; MCHC 31.2 g/dL (31.0-37.0); MCV 92.9 fL (80.0-100.0); Monocytes # (A) 0.2 k/uL (0-1.0); Monocytes % (A) 3 %; Neutrophils # (A) 6.2 k/uL (1.3-7.7); Neutrophils % (A) 89 %; RBC 3.48 m/uL (4.30-5.90); RDW 15.6 % (11.5-15.5); WBC (Perox) 7.53
[2017-01-10 06:34] LABS: Anion Gap 4 mmol/L; Blood Urea Nitrogen 53 mg/dL (9-20); Carbon Dioxide 35 mmol/L (22-30); Chloride 100 mmol/L (98-107); Glucose 141 mg/dL (74-99); Non-African American GFR(MDRD) 59 (>60 ml/min/1.73 sqM); Potassium 4.8 mmol/L (3.5-5.1); Sodium 139 mmol/L (137-145)
[2017-01-10] MEDS: HEPARIN SODIUM,PORCINE 5,000 UNIT/ML 1 ML VIAL SQ SCH (08:24)
[2017-01-10] MEDS: methylPREDNISolone SOD SUCCI 40 MG/ML 1 ML VIAL IV SCH (08:24)
[2017-01-10] MEDS: LEVOFLOXACIN 500 MG TAB PO SCH (08:25)
[2017-01-10] MEDS: ATENOLOL 50 MG TAB PO SCH (08:25)
[2017-01-10] MEDS: ATORVASTATIN 20 MG TAB PO SCH (08:25)
[2017-01-10] MEDS: LOSARTAN-HCTZ 50-12.5 MG 1 EACH TAB PO SCH (08:26)
[2017-01-10] MEDS: hydrALAZINE HCL 50 MG TAB PO SCH (08:26)
[2017-01-10] MEDS: MEMANTINE 10 MG TAB PO SCH (08:26)
[2017-01-10] MEDS: SENNOSIDES-DOCUSATE SODIUM 1 EACH TAB PO SCH (08:26)
[2017-01-10] MEDS: DILTIAZEM CD 180 MG CAP.ER.24H PO SCH (08:27)
[2017-01-10] MEDS: BUDESONIDE 1 MG/2 ML NEBU INHALATION SCH (08:44)
[2017-01-10] MEDS: FORMOTEROL FUMARATE 20 MCG/2 ML NEBU INHALATION SCH ×2 (08:44→09:01)
[2017-01-10] MEDS ORDERED: POLYETHYLENE GLYCOL 3350 17 GM POWD.PACK PO SCH (09:00)
[2017-01-10] MEDS ORDERED: REGADENOSON 0.4 MG/5 ML SYRINGE IV ONE (09:00)
[2017-01-10 09:16] VITALS: RESP 18; TEMP 97
--- NOTE | 2017-01-10 11:07 | NM ---
EXAMINATION TYPE: NM stress lexiscan cardiolite DATE OF EXAM: 01/10/2017 COMPARISON: NONE HISTORY: Chest pain TECHNIQUE: After the intravenous administration of 10.5 mCi Tc 99m Sestamibi - Cardiolite resting SP ECT images acquired 60 minutes post injection. The patient received 0.4mg Lexiscan, 26.9 mCi Tc 99m Sestamibi - Stress images obtained [address] injection FINDINGS: Review of stress and rest SPECT images demonstrates no distinct perfusion abnormality. Gated analysi s shows normal wall motion with an estimated left ventricular ejection fraction of 59 %. IMPRESSION: No scintigraphic evidence for reversible ischemia.
--- NOTE | 2017-01-10 11:51 | P.PN ---
Subjective Principal diagnosis: Acute exacerbation of COPD 72-year-old male patient with advanced COPD and chronic hypoxic respiratory failure who was admitted to the hospital because of worsening shortness of breath, chest tightness, wheezing, and impending respiratory failure. The patient was placed on BiPAP and his pulmonary status is stabilized with a combination of bronchodilators and steroids and antibiotics. Currently he is breathing easier. He is off the BiPAP overnight is still short of breath and he gets dyspneic with limited amount of activity. He has episodic cough without any significant sputum production. Admission showed COPD and prominent lung volumes and the cardiac structures were within normal limits and the pleural spaces were clear. His white cell count was elevated at 28 and currently down to 24. He had a component of an acute kidney injury with a creatinine of 1.6, cardiac enzymes were negative, proBNP level was in the 4000 range and the lactic acid was at 0.9. Urine may be infected and the patient is currently covered with Levaquin. He has some background dementia. No change in mental status. Since then leaving home and I think he is not ready for discharge. He is a cardiac evaluation. His COPD he needs to be further optimized. I contacted the son and told him that his that is not ready for discharge unless he decides to go AGAINST MEDICAL ADVICE. Patient was reevaluated today on 01/09/2017, seems to be doing better, breathing a bit easier, less cough and less wheezing less shortness of breath. Patient is known to have advanced COPD and chronic hypoxic respiratory failure, echocardiogram is being done at the time of my dictation. Patient is on proper bronchodilators, and he was already seen by Dr. Montgomery yesterday. According to the patient is a bit improved compared to how he felt yesterday. Reevaluated today on 01/10/2017, patient seems to be doing much better, breathing easier, stress test was done today, results of which are pending. Echocardiogram report was reviewed relatively unremarkable although it was a suboptimal study. Patient is presently on proper bronchodilators, antibiotics, and steroids, and he seems to be responding quite well. I discussed his condition with the admitting physician, and patient could be considered for discharge home assuming his stress test is negative. Labs were reviewed including CBC and basic metabolic profile. Renal profile was also noted to be improved compared to baseline his BUN is 53 creatinine is 1.20. Objective - Vital Signs Vital signs: Vital Signs Temp 97 F L 09/26/17 08:00 Pulse 60 01/10/17 09:00 Resp 18 01/10/17 08:00 BP 198/82 01/10/17 08:00 Pulse Ox 95 01/10/17 08:00 Intake & Output 01/09/17 01/10/17 01/10/17 18:59 06:59 18:59 Intake Total 472 20 Output Total 550 1100 Balance -78 -1080 Weight 94.9 kg 92.9 kg 92.533 kg Intake: IV 10 20 0.9% NS FLUSH 10 20 Oral 462 Output: Urine 550 1100 Other: Voiding Method Urinal Urinal - Exam Gen. appearance the patient is not in respiratory distress laying in bed he is about to have an echocardiogram at bedside Head exam was generally normal. There was no scleral icterus or corneal arcus. Mucous membranes were moist. Neck is short and supple and the patient has significant crowding of the posterior oropharynx. There is no goiter or neck masses. Lungs sounds are diminished and there is diminished breath sounds at the bases , no crackles or rhonchi or wheezes. Cardiac exam revealed the PMI to be normally situated and sized. The rhythm was regular and no extrasystoles were noted during several minutes of auscultation. The first and second heart sounds were normal and physiologic splitting of the second heart sound was noted. There were no murmurs, rubs, clicks, or gallops. Abdomen is obese soft and nontender the patient has no direct tenderness or rebound tensile guarding at this point. No ascites extremities revealed easily palpable radial, femoral and pedal pulses. There was no cyanosis, clubbing or edema.Examination of the skin revealed no evidence of significant rashes, suspicious appearing nevi or other concerning lesions. Neurologic exam is nonfocal and the patient has no focal neurological deficit Skeletal examination shows no joint deformities or arthritis. Skin: No evidence of ulcerations, Psychiatric: Intact mental status exam, normal affect, no suicidal or homicidal thoughts. Patient does not seem to be depressed. - Labs CBC & Chem 7: 01/10/17 06:03 01/10/17 06:03 Labs: Abnormal Lab Results - Last 24 Hours (Table) 01/10/17 01/10/17 Range/Units 06:03 06:03 RBC 3.48 L (4.30-5.90) m/uL Hgb 10.1 L (13.0-17.5) gm/dL Hct 32.3 L (39.0-53.0) % RDW 15.6 H (11.5-15.5) % Lymphocytes # 0.5 L (1.0-4.8) k/uL Carbon Dioxide 35 H (22-30) mmol/L BUN 53 H (9-20) mg/dL Glucose 141 H (74-99) mg/dL Assessment and Plan Plan: Assessment 1 acute COPD exacerbation with secondary shortness of breath, improved, patient could be considered for discharge home and follow up on outpatient basis. Discharge meds will include a course of prednisone 30 mg tapered over 2 weeks, Levaquin 500 milligrams daily for 5 more days, DuoNeb updrafts 4 times a day and when necessary, Pulmicort and Perforomist updrafts twice a day. 2 advanced COPD with chronic hypoxic respiratory failure admitted oxygen at 3 L/ m nasal cannula 3 CHF must suspected clinically under investigation. Echocardiogram is pending 4 chronic renal failure versus acute. Baseline creatinine is not known 5 leukocytosis 6 urine checked infection suspected 7 obesity 8 hyperlipidemia 9 hypertension 10 early dementia 11 left bundle branch block pattern on EKG, likely chronic Recommendation: Continue present treatment plan including bronchodilators, continue Solu-Medrol, off oral prednisone, continue empiric antibiotics, adjust according to the final cultures when they become available. We'll continue to follow, patient remains on heparin subcu for DVT prophylaxis, final report on the echocardiogram is pending. We'll continue to follow, discussed his condition with him and his son at bedside. Time with Patient: Less than 30
--- NOTE | 2017-01-10 11:59 | CDI ---
In responding to this query, please exercise your independent professional judgment. The [facility] Coding Staff and Clinical Documentation Specialists appreciate your assistance in clarifying documentation, maintaining compliance with coding guidelines, accurately documenting patients condition and capturing severity of illness. The fact that a question is asked does not imply that any particular answer is desired or expected. Communication forms are a method of clarifying documentation and are not made part of the Legal Health Record. Thank you in advance for your clarification. Last Revision, June 2016 Martha Landrum [address] [facility] [place] [place] [address] Documentation Clarification Form Date: 01/10/2017 11:45:00 AM From: Gena Bocanegra CCS, CCDS Admit Date: 01/07/2017 11:00:00 AM Patient Name: Maximiliano Lucio Visit Number: [id number] Discharge Date: Dr. Brad Woodson: CHF is documented in the history & physical as: Acute on chronic congestive heart failure with EF unknown. Patient is admitted with acute COPD exacerbation & acute bronchitis & acute hypoxic respiratory failure *Per Cardiology notes: Patient is not aware of history of CAD or CHF. History/Risk Factors: COPD, CHF, Hypertension, Dementia. Clinical Indicators: VS: T 100.3^, P 78, R 30 (sob, labored breathing, accessory muscle use & retractions), BP 157/61, PO 91 on 15% NRB. BNP: 4090 Echocardiogram Results: EF 50-55%, systolic function low-normal Chest X Ray: COPD. Treatment: Nebulizer txs, O2: nrb, IV steroids, Heparin sc, IV Rocephin, po Levaquin, Telem, Heart Healthy Diet, Stress test, ECHO. Consults: Cardiology, Pulmonary In your professional opinion, can you please clarify if you are treating this patient for CHF & clarify the acuity and type of CHF if known? Systolic Heart Failure: Acute Chronic Acute on Chronic Diastolic Heart Failure: Acute Chronic Acute on Chronic Systolic & Diastolic Heart Failure: Acute Chronic Acute on Chronic Unable to determine Other, please specify Please document in your progress notes and discharge summary in order to capture severity of illness and risk of mortality. Include clinical findings that support your diagnosis. FYI: Press F11 to launch patient chart. MARLON
[2017-01-10] MEDS ORDERED: predniSONE 10 MG TAB PO SCH (12:00)
[2017-01-10 12:13] VITALS: BP 150/65
[2017-01-10] MEDS: SODIUM CHLORIDE 0.9% 1,000 ML IV SCH (12:43)
--- NOTE | 2017-01-10 12:54 | EST ---
EXERCISE STRESS AGE: 72 SEX: M HT: 5'10" WT: 208 PROTOCOL: LEXISCAN CARDIOLITE STRESS TEST HEART RATE REST: 65 BLOOD PRESSURE REST: 150/60 MAXIMUM HEART RATE ACHIEVED: 81 MAXIMUM BLOOD PRESSURE: 169/66 85% MPHR: 125 100% MPHR: 147 CLINICAL INFORMATION: Baseline heart rate 65 beats per minute. Baseline blood pressure 150/60 mmHg. Baseline 12-lead ECG shows sinus mechanism with ST-segment abnormalities, repolarization and frequent PVCs. Patient received Lexiscan infusion per protocol. There was no significant change in heart rate or blood pressure. No ECG abnormalities noted. PVCs continued through the test. Nuclear portion of the stress test will be reported separately. MMODL / IJN: [id number] /
[2017-01-10 13:42] VITALS: PULSE 58
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
--- NOTE | 2017-01-11 23:35 | DS ---
DISCHARGE SUMMARY ATTENDING NOTE: This patient was seen and examined by me. I discussed with nurse practitioner, Ms. Snyder. The patient is doing better. PHYSICAL EXAM: Lungs decreased breath sounds. Awake, answering questions. Afebrile. White count 7, creatinine down to 1.20. ASSESSMENT: Acute chronic obstructive pulmonary disease exacerbation from acute bronchitis, improved. The patient is doing much better. Discharged home with short course of antibiotics. Care was discussed with the patient. The patient's nuclear stress test was negative. DISCHARGE PLANNING: More than 35 minutes. MMODL / IJN: [id number] /
== END 2017-01-10 13:50 | disposition home or self-care (01) | DRG 190 ==
LOC: EC 08:59 → 6SEL 11:00
PROVIDERS: ADMIT Hospitalist; ATTEND Hospitalist
PROC: 4A12XM4 Monitoring of Cardiac Stress, External Approach (ICD-10-PCS; principal; 2017-01-10)
PROC: 3E033HZ Introduction of Radioactive Substance into Peripheral Vein, Percutaneous Approach (ICD-10-PCS; 2017-01-10)
PROC: C22G1ZZ Tomographic (Tomo) Nuclear Medicine Imaging of Myocardium using Technetium 99m (Tc-99m) (ICD-10-PCS; 2017-01-10)
DX: J44.0 Chronic obstructive pulmonary disease with (acute) lower respiratory infection (principal); J96.21 Acute and chronic respiratory failure with hypoxia; I50.9 Heart failure, unspecified; N39.0 Urinary tract infection, site not specified; E78.5 Hyperlipidemia, unspecified; J44.1 Chronic obstructive pulmonary disease with (acute) exacerbation; N18.3 Chronic kidney disease, stage 3 (moderate); I12.9 Hypertensive chronic kidney disease with stage 1 through stage 4 chronic kidney disease, or unspecified chronic kidney disease; J20.9 Acute bronchitis, unspecified; R07.9 Chest pain, unspecified; T38.0X5A Adverse effect of glucocorticoids and synthetic analogues, initial encounter; M47.9 Spondylosis, unspecified; R00.0 Tachycardia, unspecified; I44.7 Left bundle-branch block, unspecified; M54.5 Low back pain; D72.829 Elevated white blood cell count, unspecified; F32.9 Major depressive disorder, single episode, unspecified; F02.80 Dementia in other diseases classified elsewhere, unspecified severity, without behavioral disturbance, psychotic disturbance, mood disturbance, and anxiety; G30.1 Alzheimer's disease with late onset; R53.1 Weakness; E66.9 Obesity, unspecified; G89.29 Other chronic pain; D63.1 Anemia in chronic kidney disease; Z82.3 Family history of stroke; Z79.899 Other long term (current) drug therapy; Z79.82 Long term (current) use of aspirin; Z82.5 Family history of asthma and other chronic lower respiratory diseases; Z82.49 Family history of ischemic heart disease and other diseases of the circulatory system; Z79.891 Long term (current) use of opiate analgesic; Z71.3 Dietary counseling and surveillance; Z87.820 Personal history of traumatic brain injury; Z87.891 Personal history of nicotine dependence
CPT/HCPCS: 36415; 71010; 78452; 80048; 80053; 81001; 82272; 82550; 82553; 82803; 83605; 83735; 83880; 84484; 85025; 85610; 85730; 93005; 93017; 93306; 94640; 94644; 94660; 94760; 96365; 96366; 96368; 96375; 96376; 99291